=== PATIENT | female | born 1965 | race Two or more races ===

== ENCOUNTER 2021-03-30 09:41 | Emergency (ER) | payer OTHER ==
[~2021-03-30] VITALS: Ht 157.5 cm; Wt 104.3 kg
[~2021-03-30 09:41] MED LIST: IBUP-1957 PO; SIME80TA PO
--- NOTE | 2021-03-30 09:59 | NUR ---
[facility] BED 4. BIB SELF C/O LEFT ANKLE PAIN/SWELLING,SLIPPED/FELL GOING DOWN STAIRS. PAIN 9/10 ON PAIN SCALE. AWAITING MD ALMARAZ
--- NOTE | 2021-03-30 10:12 | NUR ---
XRAY AT BEDSIDE
[2021-03-30] MEDS ORDERED: IBUP-1955 PO (10:55)
--- NOTE | 2021-03-30 11:28 | NUR ---
DISTILLERY SUPERVISOR AT BEDSIDE FOR WALKING BOOT AND CRUTCHES
[2021-03-30 11:32] VITALS: BP 184/91
== END 2021-03-30 11:33 | disposition home or self-care (01) ==
LOC: ER 09:49
DX: S82.65XA Nondisplaced fracture of lateral malleolus of left fibula, initial encounter for closed fracture (principal); I10 Essential (primary) hypertension; M10.9 Gout, unspecified; F17.210 Nicotine dependence, cigarettes, uncomplicated; W01.0XXA Fall on same level from slipping, tripping and stumbling without subsequent striking against object, initial encounter; Y93.89 Activity, other specified; Y92.89 Other specified places as the place of occurrence of the external cause; Y99.8 Other external cause status
CPT/HCPCS: 73610-TC

== ENCOUNTER 2021-09-28 22:27 | Emergency (ER) | payer OTHER ==
[~2021-09-28] VITALS: Ht 157.5 cm; Wt 104.3 kg
[~2021-09-28 22:27] MED LIST changes: +IBUP-1955 PO
--- NOTE | 2021-09-28 23:00 | NUR ---
[id number] C/O ABD PAIN STARTED AT 1330 HRS, +N/V. TOOK IBUPROFEN AT 1400 WITH NO IMPROVEMENT. PT ALSO ENDORSES DYSURIA WITHOUT HEMATURIA OR ABNORMAL VAGINAL DISCHARGE. PT ABD TENDER ON PALPATION. AWAKE AND ALERT X4 BREATHING EVEN AND UNLABORED. ALL V/S WNL. WAS AT BEDSIDE FOR EVAL.
--- NOTE | 2021-09-28 23:08 | NUR ---
20H IV LINE ESTABLISHED LH. BLOOD SENT TO LAB.
[2021-09-28] MEDS ORDERED: KETOROLAC TROMETHAMINE 15 MG/ML VIAL ONE (23:11)
[2021-09-28] MEDS ORDERED: ONDANSETRON HCL/PF 4 MG/2 ML VIAL ONE (23:11)
[2021-09-28] MEDS ORDERED: ONDANSETRON HCL/PF 4 MG/2 ML VIAL IV ONE (23:30)
[2021-09-28] MEDS ORDERED: IV NS 0.9% 1,000 ML IV ONE (23:30)
[2021-09-28] MEDS ORDERED: KETOROLAC TROMETHAMINE INJ 30 MG/ML VIAL IV ONE (23:30)
[2021-09-28 23:31] LABS: BASOPHILS # (AUTO) 0.1 K/uL (0.0-0.2); BASOPHILS % (AUTO) 0.4 % (0.0-2.0); EOSINOPHILS % (AUTO) 1.5 % (0.0-6.0); HEMATOCRIT 43 % (33-45); HEMOGLOBIN 14.6 g/dL (11.5-14.8); LYMPHOCYTES # (AUTO) 1.2 K/uL (0.8-4.8); LYMPHOCYTES % (AUTO) 7.9 % (20.0-44.0); MEAN CORPUSCULAR HGB CONC 34 g/dl (31.0-36.0); MEAN CORPUSCULAR VOLUME 95 fL (82-100); MONOCYTES % (AUTO) 6.8 % (2.0-12.0); NEUTROPHILS # (AUTO) 12.4 K/uL (1.8-8.9); NEUTROPHILS % (AUTO) 83.4 % (43.0-81.0); PLATELET COUNT (AUTO) 236 K/uL (150-450); RED BLOOD CELL COUNT(AUTO) 4.59 MIL/uL (4.0-5.2); WHITE BLOOD COUNT (AUTO) 14.9 K/uL (4.3-11.0)
[2021-09-28] MEDS ORDERED: MORPHINE SULFATE INJ 4 MG/ML DISP.SYRIN ONE (23:44)
--- NOTE | 2021-09-28 23:52 | NUR ---
HEALTH CENTER ASSOCIATE AT BEDSIDE
[2021-09-28 23:57] LABS: ALBUMIN 3.8 g/dL (3.4-5.0); BILIRUBIN,DIRECT 0.2 mg/dL (0.0-0.2); BILIRUBIN,TOTAL 0.6 mg/dL (0.2-1.0); CALCIUM, SERUM 8.5 mg/dL (8.5-10.1); CREATININE 1.1 mg/dL (0.6-1.3); POTASSIUM 4.2 mmol/L (3.5-5.1); TOTAL PROTEIN, SERUM 7.5 g/dL (6.4-8.2)
[2021-09-28 23:59] LABS: BILIRUBIN,URINE NEGATIVE (NEGATIVE); COLOR,URINE YELLOW (YELLOW); LEUKOCYTE ESTERASE ,URINE NEGATIVE (NEGATIVE); NITRITE, URINE NEGATIVE (NEGATIVE); PROTEIN,URINE NEGATIVE (NEGATIVE); UGLUCOSE NEGATIVE (NEGATIVE); UROBILINOGEN,URINE 0.2 EU/dL (0.2)
[2021-09-29] MEDS ORDERED: MORPHINE SULFATE INJ 2 MG/ML DISP.SYRIN IV ONE
--- NOTE | 2021-09-29 00:29 | NUR ---
BRENDEN COLLECTED AND SENT TO LAB
[2021-09-29] MEDS ORDERED: HYDROMORPHONE 1 MG/1 ML DISP.SYRIN IV ONE (01:00)
[2021-09-29] MEDS ORDERED: HYDROMORPHONE 1 MG/1 ML DISP.SYRIN ONE (01:01)
--- NOTE | 2021-09-29 03:07 | NUR ---
DR BARTHOLOMEW ON PHONE WITH DR ISABELL LOBATO PRES
--- NOTE | 2021-09-29 03:39 | NUR ---
[facility] STUD[facility] ADVISER TEACHER [phone]
--- NOTE | 2021-09-29 03:42 | NUR ---
[facility] [id number]-A
--- NOTE | 2021-09-29 04:09 | NUR ---
REPORT GIVEN TO VELIA
--- NOTE | 2021-09-29 04:10 | NUR ---
[facility] CALLED FOR TRANSPORT. ETA [phone]
[2021-09-29 05:03] VITALS: BP 135/71
--- NOTE | 2021-09-29 05:04 | NUR ---
REPORT GIVEN TO [facility] EMT. PT CHART AND TRANSFER FORM PROVIDED TO HIRED HELP. ALL V/S STABLE AT TIME OF TRANSFER.
[2021-09-29 05:07] LABS: BACTERIA,URINE Few /HPF (None Seen); RBC,URINE 21-50 /HPF (0-2); SQUAMOUS EPITHELIAL CELL,UR Few /HPF (None Seen)
== END 2021-09-29 05:06 | disposition short-term general hospital (02) ==
LOC: ER 22:35
DX: N13.2 Hydronephrosis with renal and ureteral calculous obstruction (principal); Z20.822 Contact with and (suspected) exposure to COVID-19; D72.829 Elevated white blood cell count, unspecified; I10 Essential (primary) hypertension
CPT/HCPCS: 99285; 74176; 96374; 76700; 96375 ×2; 96361; 85025; 80048; 83690; 80076; 81001; 36415; 87426; J2270; J2405; J7030; J1885; J1170; C9803